=== PATIENT | female | born 1975 | race African-American/Black ===

== ENCOUNTER 2017-07-20 09:28 | Emergency (ER) | payer OTHER ==
[2017-07-20 09:50] VITALS: TEMP 98.7; BMI 51.6
--- NOTE | 2017-07-20 10:02 | PDOC ---
History of Present Illness - History of Present Illness Initial Comments: 07/20/17 10:05 The patient is a 41 year old female, with a significant past medical history of frequent headaches and depression (abilifservando and zoloft) who presents to the emergency department with gradual onset of lightheadedness, shortness of breath , dizziness, and clammy hands at 6AM. The patient states she was awake for about 1-2 hours before the onset of her symptoms at 6AM. She reportedly felt fine while eating breakfast and showering, however, developed a constant feeling of being off-balance and about to faint while getting dressed. She states she was able to get dressed, however, as she was walking to her car, parked in front of her home, she developed a momentary episode of shortness of breath and clammy hands. The patient states she became worried and called for an ambulance. She reports the shortness of breath has resolved, however, continues to have the about to faint sensation. She also states she feels generalized diffuse weakness with questionable increased weakness to her right hand. She states she started taking a Centrum multivitamin about a week ago. She denies recent illnesses or sick contacts. She denies recent travels. She denies chest pain, headache. She denies fever, chills, nausea, vomit, diarrhea and constipation. She denies dysuria, frequency, urgency and hematuria. Allergies: NKDA Past surgical history: x 3 (one requiring 2 blood transfusions), tubal ligation Social history: Denies tobacco use. Denies EtOH consumption. PCP: Recently changed from Dr. Curtis to "Dr. North", however, denies being evaluated by either physicians this year. <Sherita Crooks - Last Filed: 07/20/17 12:02> <Lew Naik - Last Filed: 07/20/17 12:20> - General Chief Complaint: Lightheaded Stated Complaint: Lightheaded Time Seen by Provider: 07/20/17 09:35 NIH Stroke Scale - Last Known Well Date/Time & Onset Date Last Known Well: 07/20/17 Time Last Known Well: 06:00 - Initial Evaluation Level of consciousness: Alert Ask patient the month and their age: Answers both correctly Ask patient to open & close eyes; make fist and let go: Obeys both correctly Best gaze (horizontal eye movement): Normal Visual field testing: No visual field loss Facial paresis (Show teeth/raise eyebrows/close eyes tight): Normal symmetrical movement Motor Function: Left Arm: Normal Motor Function: Right Arm: Normal (extends arm 90 (or 45) degrees for 10 seconds without drift Motor Function: Left Leg: Normal (extends leg 30 degrees for 5 seconds without drift) Motor Function: Right Leg: Normal (extends leg 30 degrees for 5 seconds without drift) Limb Ataxia: No ataxia Sensory(Use pinprick test arms,legs,trunk,face/side to side): Normal Best language (Describe picture, name items, read sentences): No Aphasia Dysarthria (read several words): Normal articulation Extinction and Inattention: No abnormality - Total Score NIH Stroke Scale Score: 0 <Lew Naik - Last Filed: 07/20/17 12:20> tPA Exclusion checklist 3-4.5h - Thrombolytic Therapy Candidate Is patient eligible for thrombolytic therapy: No - Relative Exclusion Criteria 3-4.5 hr Stroke severity too mild: Yes - Ineligibility reason(s) Reasons No tPA given: See reason(s) noted above <Lew Naik - Last Filed: 07/20/17 12:20> Past History <Sherita Crooks - Last Filed: 07/20/17 12:02> - Past Medical History Anemia: Yes (with transfussion) COPD: No Psychiatric Problems: Yes (depression anxiety) - Suicide/Smoking/Psychosocial Hx Smoking History: Never smoked Have you smoked in the past 12 months: No Information on smoking cessation initiated: No Hx Alcohol Use: No Drug/Substance Use Hx: No Substance Use Type: None <Lew Naik - Last Filed: 07/20/17 12:20> - Past Medical History Allergies/Adverse Reactions: Allergies Allergy/AdvReac Type Severity Reaction Status Date / Time No Known Allergies Allergy Verified 07/20/17 09:34 Home Medications: Ambulatory Orders Aripiprazole [Abilify] 5 mg PO HS 07/20/17 Sertraline HCl [Zoloft -] 50 mg PO HS 07/20/17 Review of Systems - Review of Systems Able to Perform ROS?: Yes <Sherita Crooks - Last Filed: 07/20/17 12:02> - Review of Systems Constitutional: Yes: Weakness. No: Chills, Fever HEENTM: No: Recent change in vision Respiratory: Yes: Shortness of Breath. No: Cough Cardiac (ROS): Yes: Lightheadedness. No: Chest Pain, Syncope ABD/GI: No: Nausea, Vomiting : No: Dysuria Neurological: No: Headache, Seizure, Ataxia All Other Systems: Reviewed and Negative <Lew Naik - Last Filed: 07/20/17 12:20> *Physical Exam - Vital Signs Last Vital Signs Temp Pulse Resp BP Pulse Ox 98.7 F 63 20 125/76 100 07/20/17 09:35 07/20/17 09:35 07/20/17 09:35 07/20/17 09:35 07/20/17 09:35 - Physical Exam Comments: 07/20/17 10:05 GENERAL: The patient is awake, alert, and fully oriented, in no acute distress. HEAD: Normal with no signs of trauma. EYES: Pupils equal, round and reactive to light, extraocular movements intact, sclera anicteric, conjunctiva clear with no pallor. ENT: Ears normal, nares patent, oropharynx clear without exudates. Moist mucous membranes. NECK: Normal range of motion, supple without lymphadenopathy, JVD, or masses. LUNGS: Breath sounds equal, clear to auscultation bilaterally. No wheeze/ crackles. HEART: Regular rate and rhythm, normal S1 and S2 without murmur or rub. ABDOMEN: Soft/nontender/nondistended. BS wnl. No guarding or rebound. No palpable masses. No hepatosplenomegaly. EXTREMITIES: Normal range of motion, no edema. No clubbing or cyanosis. No cords, erythema, or tenderness. PSYCH: Normal mood, normal affect. SKIN: Warm, Dry, normal turgor, no rashes or lesions noted. NEURO: Mental status: The patient is alert and oriented x3. Cranial nerves: Cranial nerves II through XII are intact Motor: (+) ? subtle right arm drift but able to correct. The upper extremities are 5 over 5 in all muscle groups. The lower extremities are 5 over 5 in all muscle groups. Sensation: Sensation is intact to light touch throughout. Cerebellar: [id number]-[id number] is normal in both upper extremities. Heel-knee- garcias is normal in both lower extremities. Reflexes: 2+ and symmetric in the upper and lower extremities. Gait: Normal. Heel and toe walking are normal. Tandem gait is normal. <Jey Crooksanda - Last Filed: 07/20/17 12:02> - Vital Signs Last Vital Signs Temp Pulse Resp BP Pulse Ox 98.7 F 63 20 125/76 100 07/20/17 09:35 07/20/17 09:35 07/20/17 09:35 07/20/17 09:35 07/20/17 09:35 <Lew Naik - Last Filed: 07/20/17 12:20> Heart Score/ECG Review #1 ECG reviewed & interpreted by me at: 09:44 General ECG Interpretation: Sinus Rhythm, Normal Rate (63), Normal Intervals ( qtc 419), No acute ischemic changes <Lew Naik - Last Filed: 07/20/17 12:20> ED Treatment Course - LABORATORY CBC & Chemistry Diagram: 07/20/17 10:27 07/20/17 10:27 - RADIOLOGY Radiograph Interpretation: EXAM#: TYPE/EXAM: RESULT: [id number] RAD/CHEST X-RAY PORTABLE* Stroke. Single portable chest x-ray. Comparison study. June 19, 2004. Unremarkable contour of the cardiomediastinal silhouette. The lungs are well aerated. No evidence of pneumonia, atelectasis, CHF, pleural effusion or pneumothorax. No evidence of bulky hilar adenopathy. Intact visualized osseous structures. Impression. No evidence of active pulmonary disease. Reported By: Veto Cornejo MD 07/20/17 1046 EXAM#: TYPE/EXAM: RESULT: [id number] CT/HEAD CT (STROKE) Rule out stroke CT scan of the brain without intravenous contrast. No prior is available for comparison. There is minimal volume loss mainly in the high convexity which is nonspecific. The ventricles and basal cisterns appear unremarkable. There is a dural based right parafalcine/high convexity calcified/ossified density measuring approximately 1.4 x 1.6 x 0.9 cm, likely a benign dural calcification. It may represent a calcified/ ossified meningioma. Otherwise, no mass lesion, acute infarct or intracranial hemorrhage are identified. There is no shift of the midline structures. The calvarium is intact. Visualized paranasal sinuses and mastoid air cells are well aerated. IMPRESSION: See discussion above. No acute intracranial pathology is identified. Correlate clinically to determine further evaluation and follow-up Reported By: Radha Saenz MD 07/20/17 1043 <Sherita Crooks - Last Filed: 07/20/17 12:02> - LABORATORY CBC & Chemistry Diagram: 07/20/17 10:27 07/20/17 10:27 - RADIOLOGY Radiology Studies Ordered: Category Date Time Status HEAD CT (STROKE) [CT] Stat CT Scan 07/20/17 09:54 Ordered CHEST X-RAY PORTABLE* [RAD] Stat Radiology 07/20/17 09:55 Ordered <Lew Naik - Last Filed: 07/20/17 12:20> Medical Decision Making - Medical Decision Making 07/20/17 10:16 A portion of this note was documented by scribe services under my direction. I have reviewed the details of the note, within reason, and agree with the documentation with the following case summary and management plan written by me. 41-year-old female with no significant past medical history presents with nonspecific generalized weakness/lightheadedness since around 6 AM. Patient awoke at 5 AM, per her usual routine and in her usual state of normal health, ate breakfast and took a shower without difficulty, walked to her car and then felt some shortness of breath and generalized lightheadedness. The shortness of breath resolved after a few minutes, but the lightheadedness and generalized weakness persists so she presents for evaluation. No headache, no vision change or speech change, no focal weakness, no chest pain or pressure, no recent infectious symptoms or dehydration. Patient does have a history of frequent headaches, denies any headache associated with these symptoms. Never had symptoms like this in the past. Vital signs normal Well-appearing, looks generally fatigued, alert and speaking clearly neuro exam nonfocal, ? subtle R arm difference but still 5/5 41y/o F no PMH p/w generalized light-headedness since 6am, nonfocal exam, well appearing. VSS. atypical for ASSISTANCE COORDINATOR process, ? migraine equivalent v. metabolic/ infectious process. initiated stroke protocol orders labs, ua ekg, cxr ivf reassess 07/20/17 11:52 Hgb 10.7 unchanged from prior, remaining labs wnl, no infection on UA or CXR, CT head with ? meningioma but no other acute process. Fluids just started, will give some PO intake then reassess. 07/20/17 12:16 improving, ambulating to bathroom on her own. still no focal complaints. agrees with d/c plan, f/u with her PMD Dr. North and understands return criteria for ED. Not consistent with TIA/CVA, ? early infectious process, no pna or UTI. <Lew Naik - Last Filed: 07/20/17 12:20> *DC/Admit/Observation/Transfer - Attestations Scribe Attestion: 07/20/17 10:06 Documentation prepared by Sherita Crooks, acting as certified medical dosimetrist for Lew Naik MD <Sherita Crooks - Last Filed: 07/20/17 12:02> <Lew Naik - Last Filed: 07/20/17 12:20> Diagnosis at time of Disposition: Lightheaded - Discharge Dispostion Disposition: HOME Condition at time of disposition: Improved - Referrals Referrals: Nam Sauceda MD [Staff Physician] - - Patient Instructions Printed Discharge Instructions: DI for Dizziness-Nonvertigo Additional Instructions: Activity as tolerated. Stay hydrated. Blood tests, a urine test, an EKG, chest x-ray, and a CAT scan of the head showed no acute abnormalities. Your symptoms could be due to an early viral infection, perhaps some dehydration. Continue your medications as previously prescribed by your physician. You should follow up with Dr. North as soon as possible regarding today's emergency department visit. Also consider calling Dr. Sauceda for a primary care appointment. Return to the emergency department for any new or concerning symptoms, particularly persistent weakness, one-sided weakness or numbness, headache, fever/chills, dehydration, blood loss.
[2017-07-20] MEDS ORDERED: SODIUM CHLORIDE 1,000 ML IV ONE (10:34)
[2017-07-20 10:35] LABS: URINE APPEARANCE CLEAR; URINE BILIRUBIN NEGATIVE (NEGATIVE); URINE BLOOD NEGATIVE (NEGATIVE); URINE COLOR LTYELLOW; URINE GLUCOSE (UA) NEGATIVE (NEGATIVE); URINE KETONE NEGATIVE (NEGATIVE); URINE LEUK ESTERASE NEGATIVE (NEGATIVE); URINE NITRITE NEGATIVE (NEGATIVE); URINE PROTEIN NEGATIVE (NEGATIVE); URINE UROBILINOGEN NEGATIVE mg/dL (0.2-1.0)
[2017-07-20 10:40] LABS: BASOPHIL 0.3 % (0-2.0); EOSINOPHIL 0.7 % (0-4.5); MCH 22.5 pg (25.7-33.7); MCHC 30.7 g/dl (32.0-36.0); MEAN CELL VOLUME 73.4 fl (80-96); MEAN PLT VOLUME 9.5 fl (7.5-11.1); NEUTROPHILS 68.9 % (42.8-82.8); PLATELET COUNT 198 K/MM3 (134-434); RDW 14.6 % (11.6-15.6); WHITE BLOOD COUNT 9.8 K/mm3 (4.0-10.0)
[2017-07-20 10:56] LABS: INR 1.19 (0.82-1.09); PROTHROMBIN TIME (PATIENT) 13.5 SEC (9.98-11.88)
[2017-07-20 11:05] LABS: CALCIUM 8.2 mg/dL (8.5-10.1)
[2017-07-20 11:10] LABS: ALBUMIN 3.3 g/dl (3.4-5.0); ALK PHOS 84 U/L (45-117); ANION GAP 4 (8-16); BILIRUBIN,TOTAL 0.4 mg/dL (0.2-1.0); CHOLESTEROL 147 mg/dL (50-200); CO2 27 mmol/L (21-32); CPK 143 IU/L (26-192); CREATININE 0.7 mg/dL (0.55-1.02); GLUCOSE,RANDOM 88 mg/dL (74-106); SGOT/AST 14 U/L (15-37); SGPT/ALT 20 U/L (12-78); TOT PROT 6.9 g/dl (6.4-8.2); TROPONIN I < 0.02 ng/ml (0.00-0.05)
--- NOTE | 2017-07-20 11:33 | EKG ---
Test Reason : Blood Pressure : / mmHG Vent. Rate : 063 BPM Atrial Rate : 063 BPM P-R Int : 168 ms QRS Dur : 072 ms QT Int : 410 ms P-R-T Axes : 059 022 023 degrees QTc Int : 419 ms POOR DATA QUALITY, INTERPRETATION MAY BE ADVERSELY AFFECTED NORMAL SINUS RHYTHM NORMAL ECG WHEN COMPARED WITH ECG OF 25-JUN-2004 11:09, NO SIGNIFICANT CHANGE WAS FOUND Confirmed by PURVI GODINEZ, LILIAN ([id number]) on 07/20/2017 11:33:05 AM Referred By: Confirmed By:LILIAN LOJA MD
[2017-07-20 13:40] VITALS: BP 121/74; PULSE 62
[2017-07-20 18:03] LABS: URINE LEUK ESTERASE Negative (NEGATIVE)
== END 2017-07-20 13:40 | disposition home or self-care (01) ==
LOC: JER 09:28
PROC: 3E0337Z Introduction of Electrolytic and Water Balance Substance into Peripheral Vein, Percutaneous Approach (ICD-10-PCS; principal; 2017-07-20)
DX: R51 Headache (principal); F41.8 Other specified anxiety disorders; D64.9 Anemia, unspecified
CPT/HCPCS: 36415; 70450-TC; 71010-TC; 80053; 81003; 82465; 82550; 83718; 83721; 84478; 84484; 84703; 85025; 85610; 86850; 86900; 86901; 93005; 93010; 99283-25

== ENCOUNTER 2017-11-02 21:28 | Emergency (ER) | payer OTHER ==
[2017-11-02 21:48] VITALS: BP 161/93; PULSE 61; TEMP 98.2; BMI 50.0
[2017-11-02] MEDS ORDERED: ACETAMINOPHEN 325 MG TABLET (FP) PO ONE (22:03)
[2017-11-02] MEDS ORDERED: ACETAMINOPHEN 325 MG TABLET (FP) ONE (22:06)
--- NOTE | 2017-11-02 22:09 | PDOC ---
History of Present Illness - General Chief Complaint: Toothache Stated Complaint: TOOTHACHE Time Seen by Provider: 11/02/17 21:49 History Source: Patient Exam Limitations: No Limitations - History of Present Illness Initial Comments: 11/02/17 22:05 41 y/o female Presents the ED with complaints of pain to all 4 quadrants after having her wisdom teeth extracted last week by her oral surgeon. Patient states was given Percocet which did alleviate pain but states had ran out and now pain is unrelieved with just Motrin and Tylenol. Patient denies fever, chills, facial swelling, drainage, or foul smell to the area. Timing/Duration: 1 week Severity: moderate Associated Symptoms: reports: denies symptoms Past History - Travel Traveled outside of the country in the last 30 days: No - Past Medical History Allergies/Adverse Reactions: Allergies Allergy/AdvReac Type Severity Reaction Status Date / Time No Known Allergies Allergy Verified 11/02/17 21:47 Home Medications: Ambulatory Orders Aripiprazole [Abilify] 5 mg PO HS 07/20/17 Sertraline HCl [Zoloft -] 50 mg PO HS 07/20/17 Oxycodone HCl/Acetaminophen [Percocet 5-325 mg Tablet] 1 - 2 tab PO Q6H PRN #12 tab MDD 4 11/02/17 Anemia: Yes (with transfussion) COPD: No Psychiatric Problems: Yes (depression anxiety) - Suicide/Smoking/Psychosocial Hx Smoking History: Never smoked Have you smoked in the past 12 months: No Information on smoking cessation initiated: No Hx Alcohol Use: No Drug/Substance Use Hx: No Substance Use Type: None Patient Lives Alone: No Review of Systems - Review of Systems Able to Perform ROS?: No Constitutional: No: Symptoms Reported HEENTM: Yes: Symptoms Reported, Dental Problems Respiratory: No: Symptoms reported Musculoskeletal: No: Symptoms Reported Integumentary: No: Symptoms Reported Neurological: No: Symptoms reported *Physical Exam - Vital Signs Last Vital Signs Temp Pulse Resp BP Pulse Ox 98.2 F 61 16 161/93 100 11/02/17 21:47 11/02/17 21:47 11/02/17 21:47 11/02/17 21:47 11/02/17 21:47 - Physical Exam General Appearance: Yes: Nourished, Appropriately Dressed. No: Apparent Distress HEENT: positive: Other (Noted wisdom tooth extraction sites with no signs of infection including swelling, order, or redness. No pre-or postauricular nodes palpable. No submental node palpable.) Neck: negative: Lymphadenopathy (R), Lymphadenopathy (L) Integumentary: positive: Normal Color, Warm, Moist Neurologic: positive: Motor Strength 5/5 (ambulatory) Medical Decision Making - Medical Decision Making 11/02/17 22:12 Patient here for dental pain and requesting more pain medicine since she states completed her 5 days of Percocet still having pain to the area. Patient has no completed to fever or any signs of abscess on exam. Patient with a Percocet and 2 Tylenol here. Patient to be discharged home with the same. *DC/Admit/Observation/Transfer Diagnosis at time of Disposition: Pain, dental - Discharge Dispostion Disposition: HOME Condition at time of disposition: Good - Prescriptions Prescriptions: Oxycodone HCl/Acetaminophen [Percocet 5-325 mg Tablet] 1 - 2 tab PO Q6H PRN #12 tab MDD 4 PRN Reason: Pain - Referrals - Patient Instructions Printed Discharge Instructions: DI for Dental Pain Additional Instructions: Eat soft not abrasive foods and please follow-up with your oral surgeon. Please take Percocet as needed for pain but do not operate any heavy machinery while taking this. - Post Discharge Activity
== END 2017-11-02 22:16 | disposition home or self-care (01) ==
LOC: JERFT 21:28
DX: K08.89 Other specified disorders of teeth and supporting structures (principal); F41.8 Other specified anxiety disorders; Z86.2 Personal history of diseases of the blood and blood-forming organs and certain disorders involving the immune mechanism
CPT/HCPCS: 99281-25

== ENCOUNTER 2018-01-16 18:02 | Emergency (ER) | payer OTHER ==
[2018-01-16] MEDS ORDERED: ONDANSETRON 4 MG/2 ML VIAL IVPUSH ONE (18:21)
--- NOTE | 2018-01-16 18:23 | PDOC ---
Rapid Medical Evaluation Medical Evaluation: Allergies Allergy/AdvReac Type Severity Reaction Status Date / Time No Known Allergies Allergy Verified 11/02/17 21:47 01/16/18 18:20 I have performed a brief in-person evaluation of this patient. The patient presents with a chief complaint of: dizziness / weakness nausea started new diet pill Pertinent physical exam findings: pain, pale I have ordered the following: CBC, CMP, UA, IV, - Zofran IV The patient will proceed to the ED for further evaluation. 01/16/18 18:22 01/16/18 18:23
[2018-01-16 18:25] VITALS: PULSE 67; TEMP 98.6; BMI 53.7
--- NOTE | 2018-01-16 19:18 | PDOC ---
History of Present Illness - History of Present Illness Initial Comments: 01/16/18 19:16 42 yo with no significant pmh who p/w nausea without vomiting x 3 days. Patient reports nausea and vomiting following PO intake of new weight loss medication. Also endorses mild dull, frontal ANGELO this AM. Normal BM, and PO intake. Denies F/C, CP, SOB, abdominal pain, diarrhea, constipation, BPR, urinary complaints, hematuria, weakness, lightheadedness, sensory changes. PMHx: as noted above. Surgical: H/o x 3. ROS: as noted above SHx: Denies Etoh, IVDA, or tobacco use. Allergies: NKDA <Scott Jimenez - Last Filed: 01/16/18 21:20> <Conrado Wade - Last Filed: 01/16/18 23:27> - General Chief Complaint: Nausea Stated Complaint: NAUSEA Past History - Past Medical History Anemia: Yes (with transfussion) COPD: No Psychiatric Problems: Yes (depression anxiety) - Suicide/Smoking/Psychosocial Hx Smoking History: Never smoked Have you smoked in the past 12 months: No Hx Alcohol Use: No Drug/Substance Use Hx: No Substance Use Type: None <Scott Jimenez - Last Filed: 01/16/18 21:20> <Conrado Wade - Last Filed: 01/16/18 23:27> - Past Medical History Allergies/Adverse Reactions: Allergies Allergy/AdvReac Type Severity Reaction Status Date / Time No Known Allergies Allergy Verified 01/16/18 18:23 Home Medications: Ambulatory Orders Aripiprazole [Abilify] 5 mg PO HS 07/20/17 Sertraline HCl [Zoloft -] 50 mg PO HS 07/20/17 Oxycodone HCl/Acetaminophen [Percocet 5-325 mg Tablet] 1 - 2 tab PO Q6H PRN #12 tab MDD 4 11/02/17 Review of Systems - Review of Systems Comments:: 01/16/18 19:16 GENERAL/CONSTITUTIONAL: No fever or chills. No weakness. HEAD, EYES, EARS, NOSE AND THROAT: No change in vision. No ear pain or discharge. No sore throat. CARDIOVASCULAR: No chest pain or shortness of breath RESPIRATORY: No cough, wheezing, or hemoptysis. GASTROINTESTINAL: + nausea. No vomiting, diarrhea or constipation. GENITOURINARY: No dysuria, frequency, or change in urination. MUSCULOSKELETAL: No joint or muscle swelling or pain. No neck or back pain. SKIN: No rash NEUROLOGIC: No headache, vertigo, loss of consciousness, or change in strength/ sensation. ENDOCRINE: No increased thirst. No abnormal weight change HEMATOLOGIC/LYMPHATIC: No anemia, easy bleeding, or history of blood clots. ALLERGIC/IMMUNOLOGIC: No hives or skin allergy. <Scott Jimenez - Last Filed: 01/16/18 21:20> *Physical Exam - Vital Signs Last Vital Signs Temp Pulse Resp BP Pulse Ox 98.6 F 67 18 170/98 98 01/16/18 18:23 01/16/18 18:23 01/16/18 18:23 01/16/18 18:23 01/16/18 18:23 - Physical Exam Comments: 01/16/18 19:17 GENERAL: Awake, alert, and fully oriented, in no acute distress HEAD: No signs of trauma, normocephalic, atraumatic EYES: PERRLA, EOMI, sclera anicteric, conjunctiva clear ENT: Auricles normal inspection, hearing grossly normal, nares patent, oropharynx clear without exudates. Moist mucosa NECK: Normal ROM, supple, no lymphadenopathy, JVD, or masses LUNGS: No distress, speaks full sentences, clear to auscultation bilaterally HEART: Regular rate and rhythm, normal S1 and S2, no murmurs, rubs or gallops, peripheral pulses normal and equal bilaterally. ABDOMEN: Soft, nontender, normoactive bowel sounds. No guarding, no rebound. No masses EXTREMITIES : Normal inspection, Normal range of motion, no edema. No clubbing or cyanosis. SKIN: Warm, Dry, normal turgor, no rashes or lesions noted <Scott Jimenez - Last Filed: 01/16/18 21:20> - Vital Signs Last Vital Signs Temp Pulse Resp BP Pulse Ox 98.6 F 67 18 170/98 98 01/16/18 18:23 01/16/18 18:23 01/16/18 18:23 01/16/18 18:23 01/16/18 18:23 <Conrado Wade - Last Filed: 01/16/18 23:27> ED Treatment Course - LABORATORY CBC & Chemistry Diagram: 01/16/18 19:27 01/16/18 19:27 <Scott Jimenez - Last Filed: 01/16/18 21:20> - LABORATORY CBC & Chemistry Diagram: 01/16/18 19:27 01/16/18 19:27 - ADDITIONAL ORDERS Additional order review: Laboratory Results 01/16/18 19:27 Sodium 138 Potassium 4.9 Chloride 105 Carbon Dioxide 29 Anion Gap 4 L BUN 13 Creatinine 0.9 Creat Clearance w eGFR > 60 Random Glucose 106 Calcium 8.5 Total Bilirubin 0.4 AST 28 ALT 22 Alkaline Phosphatase 100 Total Protein 7.7 Albumin 3.8 01/16/18 19:27 RBC 5.09 MCV 73.8 L MCHC 30.5 L RDW 14.6 MPV 9.6 Neutrophils % 72.0 Lymphocytes % 22.5 Monocytes % 4.6 Eosinophils % 0.2 Basophils % 0.7 - Medications Given in the ED: ED Medications Discontinued Medications Generic Name Dose Route Start Last Admin Trade Name Willieq PRN Reason Stop Dose Admin Acetaminophen 1,000 mg 01/16/18 21:20 01/16/18 21:30 Ofirmev Injection - IVPB 01/16/18 21:21 1,000 mg ONCE ONE Administration Ondansetron HCl 4 mg 01/16/18 18:21 01/16/18 19:32 Zofran Injection IVPUSH 01/16/18 18:22 4 mg ONCE ONE Administration <Conrado Wade - Last Filed: 01/16/18 23:27> Medical Decision Making - Medical Decision Making 01/16/18 19:40 42 yo with no significant pmh who p/w nausea without vomiting x 3 days. VSS, A& Ox3, NAD. Denies abdominal pain. No evidence of abdominal pathology, SBO, colitis, AAA, borhaave, Claudia Omar. Will assess for electrolyte abnml, toxic or metabolic derangements,acid-base disturbances, or underlying infection. ED Course: 01/16/18 19:45 CBC, CMP, UA Zofran 01/16/18 21:20 WBC: 11.5 CMP: Unremarkable Tylenol 1000 mg IVPB Patient continually nasueas without vomitting. <Scott Jimenez - Last Filed: 01/16/18 21:20> *DC/Admit/Observation/Transfer - Attestations Physician Attestion: 01/16/18 19:17 I attest to the information provided in this note. <Scott Jimenez - Last Filed: 01/16/18 21:20> <Conrado Wade - Last Filed: 01/16/18 23:27> Diagnosis at time of Disposition: Nausea - Discharge Dispostion Disposition: HOME - Referrals Referrals: ON STAFF,NOT [Primary Care Provider] - - Patient Instructions Printed Discharge Instructions: DI for Nausea -- Adult Additional Instructions: Please return to the emergency department with any new or worsening symptoms or concerns. Please follow up with your primary care physician within 72 hours. Your blood pressure was elevated in the ER today. You must follow up with your primary doctor regarding this, as uncontrolled blood pressure can lead to heart or kidney disease, permanent disability, or even . - Post Discharge Activity
[2018-01-16] MEDS ORDERED: ONDANSETRON 4 MG/2 ML VIAL ONE (19:19)
[2018-01-16 19:41] LABS: BASO % 0.7 % (0-2.0); EOS % 0.2 % (0-4.5); HEMATOCRIT 37.6 % (32.4-45.2); HEMOGLOBIN 11.5 GM/dL (10.7-15.3); LYMPH % 22.5 % (8-40); MCH 22.6 pg (25.7-33.7); MCHC 30.5 g/dl (32.0-36.0); MEAN CELL VOLUME 73.8 fl (80-96); MEAN PLT VOLUME 9.6 fl (7.5-11.1); MONO % 4.6 % (3.8-10.2); PLATELET COUNT 242 K/MM3 (134-434); RBC 5.09 M/mm3 (3.60-5.2); RDW 14.6 % (11.6-15.6); WHITE BLOOD COUNT 11.5 K/mm3 (4.0-10.0)
[2018-01-16 20:14] LABS: ALBUMIN 3.8 g/dl (3.4-5.0); ALK PHOS 100 U/L (45-117); ANION GAP 4 (8-16); BILIRUBIN,TOTAL 0.4 mg/dL (0.2-1.0); BLOOD UREA NITROGEN 13 mg/dL (7-18); CALCIUM 8.5 mg/dL (8.5-10.1); CHLORIDE 105 mmol/L (98-107); CO2 29 mmol/L (21-32); CREATININE 0.9 mg/dL (0.55-1.02); GLUCOSE,RANDOM 106 mg/dL (74-106); SGPT/ALT 22 U/L (12-78); SODIUM 138 mmol/L (136-145); TOT PROT 7.7 g/dl (6.4-8.2)
[2018-01-16 20:49] LABS: POTASSIUM 4.9 mmol/L (3.5-5.1); SGOT/AST 28 U/L (15-37)
[2018-01-16] MEDS ORDERED: ACETAMINOPHEN 1000 MG/100 ML VIAL (NON FORMULARY) IVPB ONE (21:20)
[2018-01-16] MEDS ORDERED: ACETAMINOPHEN INJECTION 100 ML IVPB ONE (21:26)
--- NOTE | 2018-01-16 23:26 | PDOC ---
Attending Attestation - Resident Resident Name: Scott Jimenez - ED Attending Attestation I have performed the following: I have examined & evaluated the patient, The case was reviewed & discussed with the resident, I agree w/resident's findings & plan, Exceptions are as noted - HPI HPI: 01/16/18 23:23 "The patient is a 42 year old female, with a significant past medical history of obesity, who presents to the emergency department with 3 days of nausea without emesis. The patient reports taking a weight loss pill called Contrave for the past 3 days. She states her pharmacist told her she could increase her dosage, so she increased it yesterday despite not feeling well. She reports an associated mild, dull, frontal headache. Denies thunderclap. Denies neck pain. Denies F/C. Denies abdominal pain. She reports normal PO intake. Allergies: NKA Past surgical history: 3 C-Sections. Social history: Nonsmoker. Denies EtOH use and recreational drug use. " - Physicial Exam PE: 01/16/18 23:25 "GENERAL: Awake, alert, and fully oriented, in no acute distress. HEAD: No signs of trauma EYES: PERRLA, EOMI, sclera anicteric, conjunctiva clear ENT: Auricles normal inspection, hearing grossly normal, nares patent, oropharynx clear without exudates. Moist mucosa NECK: Nontender, no stepoffs, Normal ROM, supple, no lymphadenopathy, JVD, or masses LUNGS: Breath sounds equal, clear to auscultation bilaterally. No wheezes, and no crackles HEART: Regular rate and rhythm, normal S1 and S2, no murmurs, rubs or gallops ABDOMEN: obese, nontender, normoactive bowel sounds. No guarding, no rebound. No masses EXTREMITIES: Normal range of motion, no edema. No clubbing or cyanosis. No cords, erythema, or tenderness NEUROLOGICAL: Cranial nerves II through XII intact. 5/5 strength and sensation in all extremities, Normal speech, normal gait, normal cerebellar function SKIN: Warm, Dry, normal turgor, no rashes or lesions noted. " - Medical Decision Making 01/16/18 23:25 42 F with nausea, no other symptoms. Likely side effect of weight loss medication. Benign abdominal exam. Normal vitals. - Labs - PO challenge 01/16/18 23:26 Labs wnl Pt tolerated sandwich in ED. Pt is well appearing, with normal vitals. Clinically stable for DC at this time. I discussed the physical exam findings, ancillary test results and final diagnoses with the patient. I answered all of the patient's questions. The patient was satisfied with the care received and felt comfortable with the discharge plan and treatment plan. The patient agrees to follow up with the primary care physician within 24-72 hours. <Conrado Wade - Last Filed: 01/16/18 23:26> Attestations - Attestations 01/17/18 00:16 Documentation prepared by Lefty Muñoz, acting as medical staffing coordinator for Conrado aWde MD. <Lefty Muñoz - Last Filed: 01/17/18 00:17>
[2018-01-17] VITALS: BP 129/84
== END 2018-01-17 | disposition home or self-care (01) ==
LOC: JER 18:02
PROC: 3E033NZ Introduction of Analgesics, Hypnotics, Sedatives into Peripheral Vein, Percutaneous Approach (ICD-10-PCS; principal; 2018-01-16)
PROC: 3E033GC Introduction of Other Therapeutic Substance into Peripheral Vein, Percutaneous Approach (ICD-10-PCS; 2018-01-16)
DX: R11.0 Nausea (principal); T50.995A Adverse effect of other drugs, medicaments and biological substances, initial encounter; Y92.89 Other specified places as the place of occurrence of the external cause; F41.9 Anxiety disorder, unspecified; E66.9 Obesity, unspecified; Z68.43 Body mass index [BMI] 50.0-59.9, adult
CPT/HCPCS: 36415; 80053; 85025; 96374; 96375; 99282-25; J0131

== ENCOUNTER 2019-01-24 00:48 | Emergency (ER) | payer OTHER | END 2019-01-24 04:43 | disposition home or self-care (01) | LOC: JER 00:48 ==

== ENCOUNTER 2019-02-18 22:09 | Emergency (ER) | payer OTHER ==
[2019-02-18 22:33] VITALS: BP 103/69; PULSE 65; TEMP 98; BMI 55.5
[2019-02-19 00:16] LABS: BASO % 0.2 % (0-2.0); EOS % 0.6 % (0-4.5); HEMATOCRIT 32.9 % (32.4-45.2); HEMOGLOBIN 10.2 GM/dL (10.7-15.3); LYMPH % 25.5 % (8-40); MCH 22.9 pg (25.7-33.7); MCHC 31.1 g/dl (32.0-36.0); MEAN CELL VOLUME 73.6 fl (80-96); MEAN PLT VOLUME 8.9 fl (7.5-11.1); MONO % 4.9 % (3.8-10.2); NEUT % 68.8 % (42.8-82.8); PLATELET COUNT 236 K/MM3 (134-434); RBC 4.47 M/mm3 (3.60-5.2); RDW 14.7 % (11.6-15.6); WHITE BLOOD COUNT 11.7 K/mm3 (4.0-10.0)
--- NOTE | 2019-02-20 04:01 | PDOC ---
Documentation entered by Kathie Knight SCRIBE, acting as scribe for Le Barrios MD. Le Barrios MD: This documentation has been prepared by the Eugene ann Sammi, SCRIBE, under my direction and personally reviewed by me in its entirety. I confirm that the documentation accurately reflects all work, treatment, procedures, and medical decision making performed by me. History of Present Illness - General Chief Complaint: Vaginal Bleeding Stated Complaint: ABDOMINAL PAIN Time Seen by Provider: 02/18/19 22:58 History Source: Patient Exam Limitations: No Limitations - History of Present Illness Initial Comments: 02/18/19 23:35 The patient is a 43 year old female, with a significant PMH of tubal ligation, 3 c-sections, transfusions, who presents to the emergency department for evaluation of 2 days of vaginal bleeding and cramping. She also notes mild diffuse abdominal pain. The patient was evaluated here last month for dysfunctional uterine bleeding and did not attend her gynecology follow up. Past History - Past Medical History Allergies/Adverse Reactions: Allergies Allergy/AdvReac Type Severity Reaction Status Date / Time No Known Allergies Allergy Verified 02/18/19 22:33 Home Medications: Ambulatory Orders Aripiprazole [Abilify] 5 mg PO HS 07/20/17 Sertraline HCl [Zoloft -] 50 mg PO HS 07/20/17 Oxycodone HCl/Acetaminophen [Percocet 5-325 mg Tablet] 1 - 2 tab PO Q6H PRN #12 tab MDD 4 11/02/17 Anemia: Yes (with transfussion) COPD: No Psychiatric Problems: Yes (depression anxiety) - Reproductive History Is Patient Now?: No Therapeutic (s) & number: No - Immunization History Immunization Up to Date: Yes - Suicide/Smoking/Psychosocial Hx Smoking History: Never smoked Have you smoked in the past 12 months: No Information on smoking cessation initiated: No Hx Alcohol Use: No Drug/Substance Use Hx: No Substance Use Type: None Review of Systems - Review of Systems Comments:: 02/18/19 23:36 CONSTITUTIONAL: Absent: fever, no chills, no fatigue EYES: Absent: visual changes ENT: Absent: ear pain, no sore throat CARDIOVASCULAR: Absent: chest pain, no palpitations RESPIRATORY: Absent: cough, no SOB GI: (+)mild diffuse abdominal pain Absent: no nausea, no vomiting, no constipation, no diarrhea GENITOURINARY: Absent: dysuria, no frequency, no hematuria VAGINAL: (+)vaginal bleeding (+)cramping MUSKULOSKELETAL: Absent: back pain, no arthralgia, no myalgia SKIN: Absent: rash NEURO: Absent: headache *Physical Exam - Vital Signs Last Vital Signs Temp Pulse Resp BP Pulse Ox 98 F 65 16 103/69 98 02/18/19 22:09 02/18/19 22:09 02/18/19 22:09 02/18/19 22:09 02/18/19 22:09 - Physical Exam Comments: 02/18/19 23:35 GENERAL: (+)obese Well-appearing, well-nourished. No apparent distress. HEENT: Normocephalic, atraumatic. PERRL, EOM intact. CARDIOVASCULAR: Normal S1, S2. Regular rate and rhythm. PULMONARY: Clear to auscultation bilaterally. ABDOMEN: Soft, non-distended, non-tender. VAGINAL: (+)some bleeding in vaginal vault, no clots. Os is closed. EXTREMITIES: Normal ROM in all four extremities. No gross deformities. SKIN: Warm, dry. No rash NEUROLOGICAL: No focal neurological deficits. 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
== END 2019-02-19 01:05 | disposition home or self-care (01) ==
LOC: JER 22:09
DX: N93.8 Other specified abnormal uterine and vaginal bleeding (principal)
CPT/HCPCS: 36415; 85025; 99282-25

== ENCOUNTER 2020-05-21 04:08 | Emergency (ER) | payer OTHER ==
--- OUTSIDE RECORDS SUMMARY | 2020-05-21 06:46 | XMS ---
:1975 Author Organization [facility] Care Team Providers Name Role Phone Cordelia Adorno Unavailable [phone] Cordelia Adorno Unavailable [phone] [facility] Unavailable Unavailable Dion Marcus Unavailable [phone] LUCIA CEE Unavailable Unavailable ED STAFF PHYSICIAN, STAFF Unavailable Unavailable STERLING BRAVOA RMARITAYL-PADMAJA Unavailable Unava ilable ED STAFF PHYSICIAN, SAURAV Unavailable Unavailable Aldo Pro MD Unavailable Unavailable Aldo Pro MD Unavailable Unavailable Lucia Jones Unavailable [phone] Lucia Jones Unavailable [phone] Re-disclosure Warning The records that you are about to access may contain information from federally- assisted alcohol or drug abuse programs. If such information is present, then the following federally mandated warning applies: This information has been disclosed to you from records protected by federal confidentiality rules (42 CFR part 2). The federal rules prohibit you from making any further disclosure of this information unless further disclosure is expressly permitted by the written consent of the person to whom it pertains or as otherwise permitted by 42 CFR part 2. A general authorization for the release of medical or other information is NOT sufficient for this purpose. The Federal rules restrict any use of the information to criminally investigate or prosecute any alcohol or drug abuse patient.The records that you are about to access may contain highly sensitive health information, the redisclosure of which is protected by Article 27-F of the [facility] Public Health law. If you continue you may haveaccess to information: Regarding HIV / AIDS; Provided by facilities licensed or operated by the [facility] Office of Mental Health; or Provided by the [facility] Office for People With Developmental Disabilities. If such information is present, then the following [facility] mandated warning applies: This information has been disclosed to you from confidential records which are protected by state law. State law prohibits you from making any further disclosure of this information without the specific written consent of the person to whom it pertains, or as otherwise permitted by law. Any unauthorized further disclosure in violation of state law may result in a fine or fpc sentence or both. A general authorization for the release of medical or other information is NOT sufficient authorization for further disclosure. Encounters Encounter Providers Location Date Indications Data Source(s ) Outpatient Attender: [facility] 05/18/2020 [facility] ([facility] 03:43:49 PM Care [facility]) EDT Patient admitted. Outpatient Attender: [address] 03/14/2020 11:29:24 AM [facility] ([facility] EDT [facility]) Patient admitted. OutpatientOFFICE/OUTPATIENT Attender: [facility] 02/10/2020 [facility] VISIT, MAHCELLE Pro MD [facility] 04:22:00 PM EDT ([facility] - 02/10/2020 [facility] 04:22:00 PM EDT Medical Center) Attender: [facility] 02[facility]03/2020 [facility] 03:37:00 PM EDT ([facility] - 02/03/2020 [place] 03:37:00 PM EDT [facility] Center) Attender: Mental 01/20/2020 [facility] 03:09:00 PM EDT ([facility] - 01/20/2020 [place] 03:09:00 PM EDT Medical Center) Attender: Mental 01/13/2020 [facility] 02:32:00 PM EDT ([facility] - 01/13/2020 [place] 02:32:00 PM EDT Medical Center) OutpatientOFFICE/OUTPATIENT Attender: [facility] 01[facility]09/2020 [facility] 02:26:00 PM EDT ([facility] - 01/09/2020 [place] 02:26:00 PM EDT Medical Center) OutpatientOFFICE/OUTPATIENT Attender: Mental 12/12/2019 [facility] VISIT, MACHELLE Pro MD Health 02:04:00 PM EDT ([facility] - 12/12/2019 [place] 02:04:00 PM EDT Medical Center) Attender: Mental 12/03/2019 [facility] 10:36:00 AM EDT ([facility] - 12/03/2019 [place] 10:36:00 AM EDT Medical Center) OutpatientOFFICE/OUTPATIENT Attender: Mental 11/14/2019 [facility] VISIT, EST Aldo Pro MD Health 02:25:00 PM EDT ([facility] - 11/14/2019 [facility] 02:25:00 PM EDT Medical Center) Attender: Mental 11/11/2019 [facility] 02:32:00 PM EDT ([facility] - 11/11/2019 [facility] 02:32:00 PM EDT Medical Center) Attender: Mental 11/07/2019 [facility] Aldo Pro MD Health 05:55:00 PM EDT ([facility] - 11/07/2019 [place] 05:55:00 PM EDT Medical Center) Outpatient Attender: 10/01/2019 [facility] ([facility] 11:55:26 AM [facility]) Patient admitted. OutpatientOFFICE/OUTPATIENT Attender: Lcu[facility] Mental 09/13/2019 [facility] 01:[facility] ([facility] 09/13/2019 Medical 01:28:00 PM Center) EST Outpatient Attender: LUCIA Llamas 08/24/2019 [facility] 01:44:00 PM [place] JOYdmitter: RUST Medical [facility] Attender: Lucia Mental 08/24/2019 [facility] Health 01:44:00 PM ([facility] 08/24/2019 Medical 01:44:00 PM Center) EST Attender: LUCIA 08/24/2019 [facility] 12:00:00 AM [place] [facility] Attender: Mental 07/18/2019 [facility] 02:04:00 PM ([facility] 07/18/2019 Medical 02:04:00 PM [place]) EST Emergency Attender: SAURAV Llamas 06/25/2019 [facility] ED STAFF 06:16:00 PM [facility] PHYSICIANAttende EST - Medical r: STAFF ED 06/25/2019 Center STAFF 11:15:00 PM PHYSICIANAdmitte EST r: SAURAV ED STAFF PHYSICIAN Patient discharged. Attender: [facility] 05/06/2019 [facility] N ([facility] 02:17:00 PM EDT - [facility] 05/06/2019 [place]) 02:17:00 PM EDT OutpatientOFFICE/OU Attender: Mental Health 05/06/2019 NE XTGEN ([facility] VISIT, [facility] 12:37:00 PM EDT [facility] 05/06/2019 [place]) 12:37:00 PM EDT Outpatient Admitter: 08/30/2018 [facility] 10:05:00 AM [facility] 08/30/2018 [facility] 12:00:00 AM [facility] Medical enter Medications Medication Brand Start Product Dose Route Administrative Pharmacy [facility] Indications Reaction Description Data Name Date Form Instructions Instructions Source(s) Sertraline Zoloft ORAL active Sertrali ne [facility] 50 MG Oral 50 mg 2020 {tbl} 50 MG Oral ( [facility] tablet 12:00: Tablet [place] [Zoloft] 00 AM [Zoloft] Medica l Zoloft 50 EDT [place]) mg tablet aripiprazol Abilif ORAL active aripipr azole NEXTGEN e 5 MG Oral y 5 mg 2020 {tbl} 5 MG Oral ([facility] Tablet tablet 12:00: Tablet [place] [Abilify] 00 AM [Abilify] Medi rui Abilify 5 EDT [place]) mg tablet Sertraline Zoloft ORAL complet Sertral ine NEXTGEN 50 MG Oral 50 mg 2020 {tbl} ed 50 MG Oral ( [facility] tablet 12:00: Tablet [place] [Zoloft] 00 AM [Zoloft] Medica l Zoloft 50 EDT [place]) mg tablet aripiprazol Abilif 05/28/ 1.00 ORAL complet aripip razole NEXTGEN e 5 MG Oral y 5 mg 2020 {tbl} ed 5 MG Oral ([facility] tablet 12:00: Tablet [place] [Abilify] 00 AM [Abilify] [place] [address] EDT [place]) mg tablet Sertraline Zoloft ORAL complet Sertral ine NEXTGEN 50 MG Oral 50 mg 2020 {tbl} ed 50 MG Oral ( [facility] tablet 12:00: Tablet [place] [Zoloft] 00 AM [Zoloft] Medica l Zoloft 50 EDT [place]) mg tablet aripiprazol ORAL complet aripip razole NEXTGEN e 5 MG Oral y 5 mg 2020 {tbl} ed 5 MG Oral ([facility] tablet 12:00: Tablet [place] [Abilify] 00 AM [Abili] [place] [address] [facility]) mg tablet Sertraline Zoloft ORAL complet Sertral ine NEXTGEN 50 MG Oral 50 mg 2020 {tbl} ed 50 MG Oral ( [facility] tablet 12:00: Tablet [place] [Zoloft] 00 AM [Zoloft] Medica l Zoloft 50 EDT [place]) mg tablet aripiprazol ORAL complet aripip razole NEXTGEN e 5 MG Oral y 5 mg 2020 {tbl} ed 5 MG Oral ([facility] Tablet tablet 12:00: Tablet [place] [Abilify] 00 AM [Abili] [place] [address] [facility]) mg tablet aripiprazol ORAL complet aripip razole NEXTGEN e 5 MG Oral y 5 mg 2020 {tbl} ed 5 MG Oral ([facility] Table[facility] tablet 12:00: Tablet [place] [Abilify] 00 AM [Abilify] [address]) mg tablet Sertraline Zoloft ORAL complet Sertral ine NEXTGEN 50 MG Oral 50 mg 2020 {tbl} ed 50 MG Oral ( [facility] tablet 12:00: Tablet [place] [Zoloft] 00 AM [Zoloft] Medica l Zoloft 50 EST Center) mg tablet Sertraline Zoloft ORAL complet Sertral ine NEXTGEN 50 MG Oral 50 mg 2019 {tbl} ed 50 MG Oral ( [facility] tablet 12:00: Tablet [place] [Zoloft] 00 AM [Zoloft] Medica l Zoloft 50 EST Center) mg tablet aripiprazol lif ORAL complet aripip razole NEXTGEN e 5 MG Oral y 5 mg 2018 {tbl} ed 5 MG Oral ([facility] tablet 12:00: Tablet [place] [Abilify] 00 AM [Abilify] [facility]) mg tablet Hydroxyzine hydrox ORAL complet take 1 NEXT[facility] Hydrochlori yzine 2018 {tbl} ed tablet by ( [facility] de 25 MG HCl 25 12:00: oral route J osephs Oral Tablet mg 00 AM every day as Medical hydroxyzine tablet EST needed Cent er) HCl 25 mg tablet Sertraline Zoloft ORAL complet Sertral ine NEXTGEN 50 MG Oral 50 mg 2019 {tbl} ed 50 MG Oral ( [facility] tablet 12:00: Tablet [place] [Zoloft] 00 AM [Zoloft] Medica Zoloft 50 EDT [place]) mg tablet aripiprazol ORAL complet aripip razole NEXTGEN e 5 MG Oral y 5 mg 2018 {tbl} ed 5 MG Oral ([facility] Tablet tablet 12:00: Tablet [place] [Abilify] 00 AM [Abilify] [facility] 5 EDT Center) mg tablet aripiprazol lif ORAL complet aripip razole NEXTGEN e 5 MG Oral y 5 mg 2018 {tbl} ed 5 MG Oral ([facility] tablet 12:00: Tablet [place] [Abilify] 00 AM [Abilify] [facility] 5 EDT Center) mg tablet Sertraline Zoloft ORAL complet Sertral ine NEXTGEN 50 MG Oral 50 mg 2019 {tbl} ed 50 MG Oral ( [facility] tablet 12:00: Tablet [place] [Zoloft] 00 AM [Zoloft] Medica l Zoloft 50 EDT [place]) mg tablet Insurance Providers Payer name Policy type / Policy ID Covered Covered democrat's Policy Plan Coverage type democrat ID relationship to [place] Information [place] MEDICAID [id number] SP [id number] [place] [id number] SP [id number] COMPLETE [facility] [id number] MEDICARE OP M [id number] 01 [id number] Medicare Part Medicare [id number] 1 [id number] B Outpatient [facility] [id number] 1 [id number] Healthcare Medicaid Medicaid [id number] [facility] [id number] 1 [id number] Healthcare Medicare Dental [id number] S [id number] [employer] CHP Dental [id number] S [id number] [employer] MKD [facility] [id number] S [id number] FFS Medicaid Medicaid [id number] S [id number] Wrap Claims Medicaid [id number] S [id number] Regular Clinic Visit [facility] Medicaid [id number] S [id number] Managed Care Problems, Conditions, and Diagnoses Code Display Name Description Problem Type Effective Dates Data Source(s) F31.5 Bipolar disorder, BIPOLAR DISORD, Diagnosis 08/24/2019 [facility] current episode CRNT EPSD DEPRESS, 01:44:00 PM [facility] depressed, severe, SEVERE, W PSYCH with psychotic FEATURES features F41.9 Anxiety disorder, ANXIETY DISORDER, Diagnosis 06/25/2019 [facility] unspecified UNSPECIFIED 06:16:00 PM [facility] Surgeries/Procedures Procedure Description Date Indications Data Source(s) Psychotherapy (30 Mins) 02/10/2020 NEXT [facility] ([facility] W/ E&M 12:00:00 AM EDT [facility] - 02/10/2020 [place]) 12:00:00 AM EDT OFFICE/OUTPATIENT VISIT, 02/10/2020 NEX TGEN ([facility] EST 12:00:00 AM EDT [facility] - 02/10/2020 [place]) 12:00:00 AM EDT Psychotherapy (30 Mins) 01/09/2020 NEXT GEN ([facility] W/ E&M 12:00:00 AM EDT [facility] 01/09/2020 [place]) 12:00:00 AM EDT OFFICE/OUTPATIENT VISIT, 01/09/2020 NEX TGEN ([facility] EST 12:00:00 AM EDT [facility] 01/09/2020 [place]) 12:00:00 AM EDT Psychotherapy (30 Mins) 12/12/2019 NEXT GEN ([facility] W/ E&M 12:00:00 AM EDT [facility] 12/12/2019 [place]) 12:00:00 AM EDT OFFICE/OUTPATIENT VISIT, 12/12/2019 NEX TGEN ([facility] EST 12:00:00 AM EDT [facility] 12/12/2019 [place]) 12:00:00 AM EDT Psychotherapy (30 Mins) 11/14/2019 NEXT GEN ([facility] W/ E&M 12:00:00 AM EDT [facility] 11/14/2019 [place]) 12:00:00 AM EDT OFFICE/OUTPATIENT VISIT, 11/14/2019 NEX TGEN ([facility] EST 12:00:00 AM EDT [facility] 11/14/2019 [place]) 12:00:00 AM EDT OFFICE/OUTPATIENT VISIT, 09/13/2019 NEX TGEN ([facility] EST 12:00:00 AM EST [facility] - 09/13/2019 Center) 12:00:00 AM EST OFFICE/OUTPATIENT VISIT, 05/06/2019 NEX TGEN ([facility] EST 12:00:00 AM EDT [facility] - 05/06/2019 [facility]) 12:00:00 AM EDT Social History Code Duration Value Status Description Data Source(s ) Smoking 06/25/2019 Denies Ever completed Denies Ever Smoked [facility] [place] 08:59:00 PM EST [facility] C enter Smoking 06/25/2019 Denies Ever completed Denies Ever Smoked [facility] [place] 07:18:00 PM EST [facility] C enter Smoking 06/25/2019 Denies Ever completed Denies Ever Smoked [facility] [place] 06:44:00 PM EST Smoked Medical C enter Vital Signs ID Date Data Source UNK Name Value Range Interpretation Code Description Data Source(s) Body temperature [id number] [id number] [facility] Respiratory rate 18 /min 18 /min [facility] Oxygen saturation 98 % 98 % [facility] in [facility] blood [facility] by Pulse oximetry Heart rate 62 /min 62 /min [facility] Diastolic blood 77 mm[Hg] 77 mm[Hg] [facility] Systolic blood 146 mm[Hg] 146 mm[Hg] [facility] Patient Treatment Plan of Care Planned Activity Planned Date Details Description Data Source (s) aripiprazole 5 MG Oral 02/10/2020 12:00:00 NEXTGEN ([facility] Tablet [Abilify] AM [facility]) Sertraline 50 MG Oral 02/10/2020 12:00:00 NEXTGEN ([facility] [Zoloft] AM [facility]) aripiprazole 5 MG Oral 01/09/2020 12:00:00 NEXTGEN ([facility] Tablet [Abilify] AM [facility]) Sertraline 50 MG Oral 01/09/2020 12:00:00 NEXTGEN ([facility] Tablet [Zoloft] AM [facility]) Sertraline 50 MG Oral 12/12/2019 12:00:00 NEXTGEN ([facility] [Zoloft] AM [facility]) aripiprazole 5 MG Oral 12/12/2019 12:00:00 NEXTGEN ([facility] Tablet [Abilify] AM [facility]) aripiprazole 5 MG Oral 11/14/2019 12:00:00 NEXTGEN ([facility] [Abilify] AM [facility]) Sertraline 50 MG Oral 11/14/2019 12:00:00 NEXTGEN ([facility] Table[facility] [Zoloft] AM [facility]) aripiprazole 5 MG Oral 09/13/2019 12:00:00 NEXTGEN ([facility] Tablet [Abilify] AM [facility]) Sertraline 50 MG Oral 09/13/2019 12:00:00 NEXTGEN ([facility] Tablet [Zoloft] AM [facility]) Hydroxyzine Hydrochloride 07/18/2019 12:00:00 NEXTGEN ([facility] 25 MG Oral Tablet AM [facility]) aripiprazole 5 MG Oral 07/18/2019 12:00:00 NEXTGEN ([facility] Tablet [Abilify] AM [facility]) Sertraline 50 MG Oral 07/18/2019 12:00:00 NEXTGEN ([facility] Tablet [Zoloft] AM [facility]) Sertraline 50 MG Oral 05/06/2019 12:00:00 NEXTGEN ([facility] [Zoloft] AM [facility]) aripiprazole 5 MG Oral 05/06/2019 12:00:00 NEXTGEN ([facility] [Abilify] AM [facility]) aripiprazole 5 MG Oral 02/26/2019 12:00:00 NEXTGEN ([facility] [Abilify] AM [facility]) Sertraline 50 MG Oral 02/26/2019 12:00:00 NEXTGEN ([facility] [Zoloft] AM [facility])
== END 2020-05-21 06:05 | disposition home or self-care (01) ==
LOC: JER 04:08
DX: J06.9 Acute upper respiratory infection, unspecified (principal)
CPT/HCPCS: 99282-25; C9803; U0003

== ENCOUNTER 2020-10-05 00:26 | Inpatient (IN) | payer MEDICARE, OTHER ==
[2020-10-05] MEDS ORDERED: SODIUM CHLORIDE 0.9% 500 ML INFUS.BAG IV ONE (01:19)
[2020-10-05 01:53] LABS: BASO % 0.2 % (0-2.0); EOS % 0.3 % (0-4.5); HEMATOCRIT 32.5 % (32.4-45.2); LYMPH % 28.4 % (8-40); MCH 21.5 pg (25.7-33.7); MCHC 30.8 g/dl (32.0-36.0); MEAN CELL VOLUME 69.9 fl (80-96); MEAN PLT VOLUME 9.4 fl (7.5-11.1); NEUT % 65.1 % (42.8-82.8); PLATELET COUNT 198 K/MM3 (134-434); RBC 4.65 M/mm3 (3.60-5.2); RDW 15.5 % (11.6-15.6); WHITE BLOOD COUNT 8.2 K/mm3 (4.0-10.0)
[2020-10-05 02:08] LABS: INR 1.09 (0.83-1.09); PROTHROMBIN TIME (PATIENT) 13.2 SEC (9.7-13.0)
[2020-10-05 02:10] LABS: ACTIVATED PTT 30.4 SECONDS (25.2-36.5); CHLORIDE 107 mmol/L (98-107); POTASSIUM 4.5 mmol/L (3.5-5.1); SODIUM 140 mmol/L (136-145)
[2020-10-05 02:13] LABS: ANION GAP 6 MMOL/L (8-16); BLOOD UREA NITROGEN 10.1 mg/dL (7-18); CALCIUM 8.3 mg/dL (8.5-10.1); CO2 26 mmol/L (21-32)
[2020-10-05 02:14] LABS: ALBUMIN 3.3 g/dl (3.4-5.0); GLUCOSE,RANDOM 99 mg/dL (74-106)
[2020-10-05 02:17] LABS: CREATININE 0.8 mg/dL (0.55-1.3); PHOSPHOROUS 2.4 mg/dL (2.5-4.9); SGOT/AST 32 U/L (15-37); SGPT/ALT 30 U/L (13-61)
[2020-10-05 02:18] LABS: BILIRUBIN,TOTAL 0.4 mg/dL (0.2-1); TOT PROT 7.4 g/dl (6.4-8.2)
[2020-10-05 02:19] LABS: ALK PHOS 104 U/L (45-117)
[2020-10-05 02:23] LABS: N-TERMINAL BNP 73.7 pg/ml (5-125)
[2020-10-05] MEDS ORDERED: ACETAMINOPHEN 500 MG TABLET (FP) PO ONE (02:57)
[2020-10-05] MEDS ORDERED: ACETAMINOPHEN 325 MG TABLET (FP) ONE (03:04)
[2020-10-05] MEDS ORDERED: DEXAMETHASONE LIQUID 0.5 MG/5 ML PO ONE (03:09)
[2020-10-05] MEDS ORDERED: ALBUTEROL SO4 2.5/IPRATROPIUM 0.5 INH SOL 3 ML VIAL.NEB. NEB ONE ×2 (03:10→03:11)
[2020-10-05] MEDS ORDERED: DEXAMETHASONE SOD PHOSPHATE 10 MG/1 ML VIAL ONE (03:12)
[2020-10-05 03:33] LABS: ANISOCYTOSIS 2+; MACROCYTOSIS 0; OVALOCYTE 1+; PLATELET ESTIMATE NORMAL; TARGET CELLS 1+; TEAR DROP CELLS 1+
[2020-10-05] MEDS ORDERED: FUROSEMIDE 40 MG/4 ML INJECTABLE VIAL IVPUSH ONE (04:14)
[2020-10-05] MEDS ORDERED: NAPH,MB-DB/K PH,MBDB POWDER PACKET PO ONE (04:21)
[2020-10-05] MEDS ORDERED: ACETAMINOPHEN 325 MG TABLET (FP) PO PRN (04:37)
[2020-10-05] MEDS ORDERED: NAPH,MB-DB/K PH,MBDB POWDER PACKET ONE (04:40)
[2020-10-05] MEDS ORDERED: FUROSEMIDE 40 MG/4 ML INJECTABLE VIAL ONE (04:40)
[2020-10-05] MEDS ORDERED: ENOXAPARIN NA (PORCINE) 40 MG/0.4 ML DISP.SYRIN SQ SCH (10:00)
[2020-10-05 10:25] LABS: BASO % 0.2 % (0-2.0); HEMATOCRIT 33.6 % (32.4-45.2); HEMOGLOBIN 10.7 GM/dL (10.7-15.3); LYMPH % 12.2 % (8-40); MCH 21.9 pg (25.7-33.7); MCHC 31.8 g/dl (32.0-36.0); MEAN CELL VOLUME 68.8 fl (80-96); MONO % 1.1 % (3.8-10.2); NEUT % 86.5 % (42.8-82.8); PLATELET COUNT 225 K/MM3 (134-434); RBC 4.88 M/mm3 (3.60-5.2); RDW 15.5 % (11.6-15.6); RETICULOCYTES 1.98 % (0.5-1.5); WHITE BLOOD COUNT 7.5 K/mm3 (4.0-10.0)
[2020-10-05] MEDS ORDERED: ENOXAPARIN NA (PORCINE) 40 MG/0.4 ML DISP.SYRIN SQ ONE (10:34)
[2020-10-05] MEDS: ENOXAPARIN NA (PORCINE) 40 MG/0.4 ML DISP.SYRIN SQ SCH ×2 (10:38→21:28)
[2020-10-05 10:50] LABS: POTASSIUM 3.9 mmol/L (3.5-5.1)
[2020-10-05 10:51] LABS: CALCIUM 8.6 mg/dL (8.5-10.1)
[2020-10-05 10:52] LABS: ALBUMIN 3.7 g/dl (3.4-5.0); BLOOD UREA NITROGEN 12.4 mg/dL (7-18); MAGNESIUM 2.1 mg/dL (1.8-2.4)
[2020-10-05 10:55] LABS: CREATININE 0.9 mg/dL (0.55-1.3); PHOSPHOROUS 2.4 mg/dL (2.5-4.9)
[2020-10-05 10:57] LABS: BILIRUBIN,TOTAL 0.3 mg/dL (0.2-1); TOT PROT 8.4 g/dl (6.4-8.2)
[2020-10-05] MEDS ORDERED: ALBUTEROL SO4 HFA INHALER IH ONE (12:49)
[2020-10-05] MEDS: ALBUTEROL SO4 HFA INHALER IH SCH ×3 (13:07→21:27)
[2020-10-05 17:23] VITALS: BMI 58.5
[2020-10-05] MEDS: BUDESONIDE/FORMETEROL FUMARATE 160/4.5 mcg INHALER IH SCH ×3 (17:33→21:28)
[2020-10-05] MEDS ORDERED: MELATONIN 5 MG TABLETS PO ONE (20:36)
[2020-10-05] MEDS ORDERED: SERTRALINE HCL 50 MG TABLET (FP) PO SCH (22:00)
[2020-10-05] MEDS ORDERED: ARIPiprazole 5 MG TABLET PO SCH (22:00)
[2020-10-06] MEDS ORDERED: MAG HYDROX/AL HYDROX/SIMETH 30 ML UNIT-DOSE CUP PO PRN (01:50)
[2020-10-06] MEDS ORDERED: BENZOCAINE/MENTH/CETYLPYRD CL 1 EACH LOZENGE MM PRN ×2 (05:47→15:45)
[2020-10-06] MEDS ORDERED: guaiFENesin 200 MG/10 ML 10 ML UNIT-DOSE CUPS PO PRN ×2 (05:47→15:45)
[2020-10-06] MEDS: BUDESONIDE/FORMETEROL FUMARATE 160/4.5 mcg INHALER IH SCH (10:21)
[2020-10-06] MEDS: ENOXAPARIN NA (PORCINE) 40 MG/0.4 ML DISP.SYRIN SQ SCH (10:21)
[2020-10-06] MEDS: ALBUTEROL SO4 HFA INHALER IH SCH ×3 (10:21→17:22)
[2020-10-06] MEDS ORDERED: DOCUSATE SODIUM 100 MG CAPSULE (FP) PO SCH (14:15)
[2020-10-06] MEDS ORDERED: FAMOTIDINE 10 MG TABLET PO SCH (14:15)
[2020-10-06 14:24] VITALS: BP 152/80; PULSE 77; TEMP 98.7
[2020-10-06] MEDS ORDERED: NAPH,MB-DB/K PH,MBDB POWDER PACKET PO ONE (15:00)
[2020-10-06] MEDS ORDERED: SENNOSIDES 8.6MG TABLET (FP) PO SCH (22:00)
== END 2020-10-06 21:00 | disposition home or self-care (01) | DRG 177 ==
LOC: JER 00:26 → JERBED 03:00 → J7W 14:51
PROVIDERS: ADMIT Internal Medicine; ATTEND Internal Medicine
DX: U07.1 COVID-19 (principal); J12.82 Pneumonia due to coronavirus disease 2019; J96.01 Acute respiratory failure with hypoxia; Z68.43 Body mass index [BMI] 50.0-59.9, adult; F32.9 Major depressive disorder, single episode, unspecified; F41.9 Anxiety disorder, unspecified; E66.01 Morbid (severe) obesity due to excess calories; D50.9 Iron deficiency anemia, unspecified; I87.2 Venous insufficiency (chronic) (peripheral); E03.9 Hypothyroidism, unspecified
CPT/HCPCS: 36415; 71045-TC-FY; 71275-TC; 80053; 82550; 82728; 83540; 83550; 83605; 83615; 83735; 83880; 84100; 84439; 84443; 84484; 84703; 85025; 85045; 85379; 85610; 85730; 86140; 86769; 87040; 87804; 93005; 93010; 93306-TC; 99285-25; C9803; U0003

== ENCOUNTER 2021-02-19 13:04 | Inpatient (IN) | payer MEDICARE, OTHER ==
[2021-02-19] MEDS ORDERED: FUROSEMIDE 40 MG/4 ML INJECTABLE VIAL IVPUSH ONE (13:51)
[2021-02-19] MEDS ORDERED: FUROSEMIDE 40 MG/4 ML INJECTABLE VIAL ONE ×2 (14:03→19:20)
[2021-02-19 14:56] LABS: BASO % 0.4 % (0-2.0); EOS % 0.7 % (0-4.5); HEMATOCRIT 31.6 % (32.4-45.2); HEMOGLOBIN 9.5 GM/dL (10.7-15.3); MCH 20.8 pg (25.7-33.7); MCHC 30.1 g/dl (32.0-36.0); MEAN CELL VOLUME 69.2 fl (80-96); MEAN PLT VOLUME 9.3 fl (7.5-11.1); MONO % 4.2 % (3.8-10.2); NEUT % 68.7 % (42.8-82.8); PLATELET COUNT 270 10^3/uL (134-434); RBC 4.57 M/mm3 (3.60-5.2); RDW 16.6 % (11.6-15.6); WHITE BLOOD COUNT 13.4 K/mm3 (4.0-10.0)
[2021-02-19 15:09] LABS: INR 1.13 (0.83-1.09); PROTHROMBIN TIME (PATIENT) 13.8 SEC (9.7-13.0)
[2021-02-19 15:27] LABS: ALBUMIN 3.3 g/dl (3.4-5.0); CALCIUM 8.9 mg/dL (8.5-10.1)
[2021-02-19 15:28] LABS: BLOOD UREA NITROGEN 11.9 mg/dL (7-18)
[2021-02-19 15:31] LABS: CREATININE 0.8 mg/dL (0.55-1.3)
[2021-02-19 15:32] LABS: BILIRUBIN,TOTAL 0.3 mg/dL (0.2-1); TOT PROT 7.2 g/dl (6.4-8.2)
[2021-02-19 15:35] LABS: N-TERMINAL BNP 185.3 pg/ml (5-125)
[2021-02-19] MEDS ORDERED: ACETAMINOPHEN 325 MG TABLET (FP) PO PRN (17:15)
[2021-02-19] MEDS ORDERED: FUROSEMIDE 40 MG/4 ML INJECTABLE VIAL IVPUSH SCH (19:15)
[2021-02-19] MEDS ORDERED: ALBUTEROL SO4 HFA INHALER IH PRN (19:18)
[2021-02-19 20:19] LABS: EPI CELLS 21 /uL (0-25.1); HYALINE CASTS 0 /uL (0-3.1); PH,URINE 5.5 (5.0-8.0); URINE APPEARANCE CLEAR; URINE BACTERIA 68 /uL (0-1359); URINE BILIRUBIN NEGATIVE (NEGATIVE); URINE COLOR YELLOW; URINE GLUCOSE (UA) NEGATIVE (NEGATIVE); URINE KETONE NEGATIVE (NEGATIVE); URINE LEUK ESTERASE TRACE (NEGATIVE); URINE NITRITE NEGATIVE (NEGATIVE); URINE PROTEIN NEGATIVE (NEGATIVE); URINE RBC 12 /uL (0-23.9); URINE WBC 48 /uL (0-25.8)
[2021-02-19 20:31] LABS: RETICULOCYTES 3.53 % (0.5-1.5)
[2021-02-19] MEDS ORDERED: PT OWN MED DRAWER 7, Y5N ONE (22:03)
[2021-02-19] MEDS: SERTRALINE HCL 50 MG TABLET (FP) PO SCH ×2 (22:13→22:26)
[2021-02-19] MEDS: ENOXAPARIN NA (PORCINE) 40 MG/0.4 ML DISP.SYRIN SQ SCH (22:13)
[2021-02-19] MEDS: ARIPiprazole 5 MG TABLET PO SCH (22:25)
[2021-02-19] MEDS: BUDESONIDE/FORMETEROL FUMARATE 160/4.5 mcg INHALER IH SCH (22:26)
[2021-02-20 00:37] VITALS: BMI 63.1
[2021-02-20 08:17] LABS: BASO % 0.9 % (0-2.0); EOS % 1.1 % (0-4.5); HEMATOCRIT 30.7 % (32.4-45.2); HEMOGLOBIN 9.3 GM/dL (10.7-15.3); LYMPH % 29.3 % (8-40); MCH 21.1 pg (25.7-33.7); MCHC 30.3 g/dl (32.0-36.0); MEAN CELL VOLUME 69.4 fl (80-96); MEAN PLT VOLUME 9.9 fl (7.5-11.1); MONO % 4.5 % (3.8-10.2); NEUT % 64.2 % (42.8-82.8); PLATELET COUNT 176 10^3/uL (134-434); RBC 4.43 M/mm3 (3.60-5.2); RDW 16.3 % (11.6-15.6); WHITE BLOOD COUNT 10.5 K/mm3 (4.0-10.0)
[2021-02-20 08:35] LABS: CHLORIDE 104 mmol/L (98-107); SODIUM 139 mmol/L (136-145)
[2021-02-20 08:53] LABS: BILIRUBIN,TOTAL 0.4 mg/dL (0.2-1); CALCIUM 8.5 mg/dL (8.5-10.1); TOT PROT 6.9 g/dl (6.4-8.2)
[2021-02-20 08:54] LABS: ALBUMIN 3.2 g/dl (3.4-5.0); ALK PHOS 91 U/L (45-117); ANION GAP 10 MMOL/L (8-16); BLOOD UREA NITROGEN 13.4 mg/dL (7-18); CHOLESTEROL 191 mg/dL (50-200); CO2 25 mmol/L (21-32); CREATININE 0.9 mg/dL (0.55-1.3); GLUCOSE,RANDOM 97 mg/dL (74-106); HDL CHOLESTEROL 37 mg/dL (40-60)
[2021-02-20 08:55] LABS: PHOSPHOROUS 4.2 mg/dL (2.5-4.9); TRIGLYCERIDES 115 mg/dL (0-150)
[2021-02-20 08:56] LABS: LDL CHOLESTEROL (ONLY SJRH) 120 mg/dL (5-100)
[2021-02-20 08:57] LABS: SGOT/AST 17 U/L (15-37); SGPT/ALT 25 U/L (13-61)
[2021-02-20] MEDS: FUROSEMIDE 40 MG/4 ML INJECTABLE VIAL IVPUSH SCH (10:12)
[2021-02-20] MEDS: BUDESONIDE/FORMETEROL FUMARATE 160/4.5 mcg INHALER IH SCH ×3 (10:13→21:24)
[2021-02-20] MEDS: ENOXAPARIN NA (PORCINE) 40 MG/0.4 ML DISP.SYRIN SQ SCH ×2 (10:13→21:23)
[2021-02-20] MEDS ORDERED: PT OWN MED DRAWER 7, Y5N ONE (21:07)
[2021-02-20] MEDS: SERTRALINE HCL 50 MG TABLET (FP) PO SCH (21:23)
[2021-02-20] MEDS: ARIPiprazole 5 MG TABLET PO SCH (21:23)
[2021-02-21] MEDS ORDERED: FAMOTIDINE 10 MG TABLET PO ONE (00:07)
[2021-02-21 08:05] LABS: BASO % 0.3 % (0-2.0); EOS % 1.4 % (0-4.5); HEMATOCRIT 30.3 % (32.4-45.2); HEMOGLOBIN 9.2 GM/dL (10.7-15.3); LYMPH % 27.5 % (8-40); MCH 20.8 pg (25.7-33.7); MCHC 30.2 g/dl (32.0-36.0); MEAN CELL VOLUME 68.9 fl (80-96); MEAN PLT VOLUME 9.2 fl (7.5-11.1); NEUT % 65.8 % (42.8-82.8); PLATELET COUNT 262 10^3/uL (134-434); RBC 4.39 M/mm3 (3.60-5.2); RDW 16.7 % (11.6-15.6); WHITE BLOOD COUNT 10.5 K/mm3 (4.0-10.0)
[2021-02-21 08:20] LABS: ALBUMIN 3.3 g/dl (3.4-5.0); BLOOD UREA NITROGEN 14.1 mg/dL (7-18); CALCIUM 8.3 mg/dL (8.5-10.1)
[2021-02-21 08:24] LABS: CREATININE 0.9 mg/dL (0.55-1.3)
[2021-02-21 08:25] LABS: BILIRUBIN,TOTAL 0.5 mg/dL (0.2-1)
[2021-02-21] MEDS: ENOXAPARIN NA (PORCINE) 40 MG/0.4 ML DISP.SYRIN SQ SCH (10:05)
[2021-02-21] MEDS: BUDESONIDE/FORMETEROL FUMARATE 160/4.5 mcg INHALER IH SCH (10:05)
[2021-02-21] MEDS: FUROSEMIDE 40 MG/4 ML INJECTABLE VIAL IVPUSH SCH (10:05)
[2021-02-21 11:16] VITALS: PULSE 78
[2021-02-21] MEDS ORDERED: ONDANSETRON 4 MG/2 ML VIAL IVPUSH PRN (14:36)
[2021-02-21 14:42] VITALS: BP 138/84; TEMP 98.5
== END 2021-02-21 17:44 | disposition home or self-care (01) | DRG 641 ==
LOC: JER 13:04 → MERGE 16:01 → JERBED 16:01 → J4W 21:34
PROVIDERS: ATTEND Student in an Organized Health Care Education/Training Program
DX: E66.01 Morbid (severe) obesity due to excess calories (principal); D64.9 Anemia, unspecified; I25.10 Atherosclerotic heart disease of native coronary artery without angina pectoris; F31.9 Bipolar disorder, unspecified; G43.909 Migraine, unspecified, not intractable, without status migrainosus; E78.5 Hyperlipidemia, unspecified; N92.0 Excessive and frequent menstruation with regular cycle; G47.33 Obstructive sleep apnea (adult) (pediatric); I87.2 Venous insufficiency (chronic) (peripheral); Z86.16 Personal history of COVID-19; I10 Essential (primary) hypertension; Z68.44 Body mass index [BMI] 60.0-69.9, adult
CPT/HCPCS: 36415; 71045-TC-FY; 71250-TC; 80053; 80061; 81003; 82550; 82728; 83010; 83036; 83540; 83550; 83721; 83735; 83880; 84100; 84484; 85025; 85045; 85610; 85730; 93005; 93010; 93970-TC; 99285-25; C9803; U0003; U0005

== ENCOUNTER 2023-09-13 20:29 | Emergency (ER) | payer MEDICARE, OTHER ==
[2023-09-13 20:36] VITALS: RESP 18; TEMP 98.6; BMI 44.4
[2023-09-13 23:34] LABS: BASO % 0.5 % (0-2.0); EOS % 0.8 % (0-4.5); HEMATOCRIT 31.8 % (32.4-45.2); HEMOGLOBIN 10.1 GM/dL (10.7-15.3); MCH 23.5 pg (25.7-33.7); MCHC 31.7 g/dl (32.0-36.0); MONO % 4.8 % (3.8-10.2); NEUT % 57.9 % (42.8-82.8); PLATELET COUNT 205 10^3/uL (134-434); RDW 14.3 % (11.6-15.6); WHITE BLOOD COUNT 9.6 K/mm3 (4.0-10.0)
[2023-09-13 23:41] LABS: INR 1.11 (0.83-1.09); PROTHROMBIN TIME (PATIENT) 12.9 SEC (9.7-13.0)
[2023-09-13 23:44] LABS: ACTIVATED PTT 32.2 SECONDS (25.2-36.5)
[2023-09-13 23:53] LABS: POTASSIUM 4.5 mmol/L (3.5-5.1)
[2023-09-13 23:55] LABS: ALBUMIN 3.2 g/dl (3.4-5.0); BLOOD UREA NITROGEN 15.6 mg/dL (7-18); CALCIUM 8.3 mg/dL (8.5-10.1)
[2023-09-13 23:58] LABS: CREATININE 0.8 mg/dL (0.55-1.3)
[2023-09-14] LABS: BILIRUBIN,TOTAL 0.3 mg/dL (0.2-1); TOT PROT 6.7 g/dl (6.4-8.2)
[2023-09-14 00:45] VITALS: BP 119/68; PULSE 53
== END 2023-09-14 01:16 | disposition home or self-care (01) ==
LOC: JER 20:29
DX: R23.2 Flushing (principal); R35.1 Nocturia; R42 Dizziness and giddiness; Z20.822 Contact with and (suspected) exposure to COVID-19
CPT/HCPCS: 0241U-QW; 36415; 71046-TC-FY; 80053; 84484; 85025; 85610; 85730; 86850; 86900; 86901; 93005; 93010; 99285-25

== ENCOUNTER 2024-01-19 08:55 | Emergency (ER) | payer OTHER ==
[2024-01-19 09:34] VITALS: BP 126/72; PULSE 56; RESP 18; TEMP 98; BMI 44.9
[2024-01-19] MEDS ORDERED: ACETAMINOPHEN INJECTION 100 ML IVPB ONE (09:46)
[2024-01-19] MEDS: SODIUM CHLORIDE 0.9% 500 ML INFUS.BAG IV ONE (10:11)
[2024-01-19] MEDS: ACETAMINOPHEN 1000 MG/100 ML BAG IVPB ONE (10:11)
[2024-01-19 10:24] LABS: BASO % 0.4 % (0-2.0); EOS % 0.6 % (0-4.5); HEMATOCRIT 32.6 % (32.4-45.2); HEMOGLOBIN 10.3 GM/dL (10.7-15.3); LYMPH % 24.2 % (8-40); MCH 22.3 pg (25.7-33.7); MCHC 31.5 g/dl (32.0-36.0); MEAN CELL VOLUME 70.7 fl (80-96); MEAN PLT VOLUME 9.3 fl (7.5-11.1); MONO % 5.8 % (3.8-10.2); PLATELET COUNT 223 10^3/uL (134-434); RBC 4.61 M/mm3 (3.60-5.2); RDW 15.9 % (11.6-15.6)
[2024-01-19 10:29] LABS: INR 1.16 (0.83-1.09); PROTHROMBIN TIME (PATIENT) 13.1 SEC (9.7-13.0)
[2024-01-19 10:32] LABS: ACTIVATED PTT 32.8 SECONDS (25.2-36.5)
[2024-01-19 10:42] LABS: POTASSIUM 5.7 mmol/L (3.5-5.1)
[2024-01-19 10:44] LABS: CALCIUM 8.7 mg/dL (8.5-10.1)
[2024-01-19 10:45] LABS: ALBUMIN 3.3 g/dl (3.4-5.0); BLOOD UREA NITROGEN 7.8 mg/dL (7-18); MAGNESIUM 2.3 mg/dL (1.8-2.4)
[2024-01-19 10:48] LABS: CREATININE 0.7 mg/dL (0.55-1.3)
[2024-01-19 10:49] LABS: BILIRUBIN,TOTAL 0.5 mg/dL (0.2-1)
[2024-01-19] MEDS ORDERED: METOCLOPRAMIDE HCL INJECTION 10 MG/2 ML VIAL ONE (11:38)
[2024-01-19] MEDS ORDERED: LIDOCAINE VISCOUS 2% ORAL/TOP 15 ML UNIT-DOSE CUP ONE (11:38)
[2024-01-19] MEDS: METOCLOPRAMIDE HCL INJECTION 10 MG/2 ML VIAL IVPB ONE (11:45)
[2024-01-19] MEDS: LIDOCAINE VISCOUS 2% ORAL/TOP 15 ML UNIT-DOSE CUP MM ONE (11:45)
[2024-01-19 12:34] LABS: POTASSIUM 4.5 mmol/L (3.5-5.1)
[2024-01-19 12:36] LABS: BLOOD UREA NITROGEN 6.7 mg/dL (7-18); CALCIUM 8.3 mg/dL (8.5-10.1)
[2024-01-19 12:40] LABS: CREATININE 0.7 mg/dL (0.55-1.3)
== END 2024-01-19 13:02 | disposition home or self-care (01) ==
LOC: JER 08:55
PROC: 3E033NZ Introduction of Analgesics, Hypnotics, Sedatives into Peripheral Vein, Percutaneous Approach (ICD-10-PCS; principal; 2024-01-19)
PROC: 3E033GC Introduction of Other Therapeutic Substance into Peripheral Vein, Percutaneous Approach (ICD-10-PCS; 2024-01-19)
DX: J06.9 Acute upper respiratory infection, unspecified (principal); R53.1 Weakness; R09.81 Nasal congestion; R42 Dizziness and giddiness; R07.9 Chest pain, unspecified; R11.2 Nausea with vomiting, unspecified; R51.9 Headache, unspecified; J02.9 Acute pharyngitis, unspecified; B34.9 Viral infection, unspecified; Z20.822 Contact with and (suspected) exposure to COVID-19
CPT/HCPCS: 0241U-QW; 36415; 71046-TC-FY; 80048; 80053; 83735; 84484; 84703; 85025; 85610; 85730; 86850; 86900; 86901; 93005; 93010; 96374; 96375; 99285-25; J0131

== ENCOUNTER 2024-04-18 10:24 | Day surgery (SDC) | payer OTHER ==
[2024-04-18] MEDS ORDERED: diphenhydrAMINE HCL 50 MG CAPSULE PO PRN (10:38)
[2024-04-18] MEDS ORDERED: HYDROCORTISONE SOD SUCCINATE 100 MG/2 ML VIAL IVPB PRN (10:39)
[2024-04-18] MEDS: IRON SUCROSE INJECTION 200 MG in SODIUM CHLORIDE 100 ML IVPB ONE (10:46)
[2024-04-18 12:06] VITALS: BP 131/76; PULSE 64; RESP 18; TEMP 98.9
== END 2024-04-18 12:10 | disposition home or self-care (01) ==
LOC: FINFUSION 10:24 → FM/S 10:24 → FINFUSION 12:10
PROVIDERS: ATTEND Internal Medicine
PROC: 3E033GC Introduction of Other Therapeutic Substance into Peripheral Vein, Percutaneous Approach (ICD-10-PCS; principal; 2024-04-18)
DX: D50.9 Iron deficiency anemia, unspecified (principal)
CPT/HCPCS: 96365; J1756

== ENCOUNTER 2025-01-07 08:40 | Emergency (ER) | payer OTHER ==
[2025-01-07 09:01] VITALS: RESP 18; TEMP 97.7; BMI 45.1
[2025-01-07] MEDS ORDERED: METOCLOPRAMIDE HCL INJECTION 10 MG/2 ML VIAL ONE (09:13)
[2025-01-07] MEDS ORDERED: ACETAMINOPHEN INJECTION 100 ML ONE (09:13)
[2025-01-07] MEDS: ACETAMINOPHEN 1000 MG/100 ML BAG IVPB ONE (09:20)
[2025-01-07] MEDS: METOCLOPRAMIDE HCL INJECTION 10 MG/2 ML VIAL IVPB ONE (09:45)
[2025-01-07 09:50] LABS: HEMOGLOBIN 9.7 g/dL (11.2-15.7); MCHC 30.3 g/dl (32.2-35.5); MEAN CELL VOLUME 71.7 fl (79.4-94.8); PLATELET COUNT 253 x10^3/uL (182-369); RDW 13.2 % (12.2-17.1)
[2025-01-07] MEDS: SODIUM CHLORIDE 0.9% 500 ML INFUS.BAG IV ONE (09:50)
[2025-01-07 10:46] LABS: ALBUMIN 3.4 g/dl (3.4-5.0); BLOOD UREA NITROGEN 10.2 mg/dL (7-18); CALCIUM 9.3 mg/dL (8.5-10.1)
[2025-01-07 10:49] LABS: CREATININE 0.6 mg/dL (0.55-1.3)
[2025-01-07 10:51] LABS: BILIRUBIN,TOTAL 0.4 mg/dL (0.2-1); TOT PROT 6.6 g/dl (6.4-8.2)
[2025-01-07 12:13] VITALS: BP 132/72; PULSE 63
== END 2025-01-07 12:15 | disposition home or self-care (01) ==
LOC: JER 08:40
PROC: 3E033NZ Introduction of Analgesics, Hypnotics, Sedatives into Peripheral Vein, Percutaneous Approach (ICD-10-PCS; principal; 2025-01-07)
PROC: 3E033GC Introduction of Other Therapeutic Substance into Peripheral Vein, Percutaneous Approach (ICD-10-PCS; 2025-01-07)
DX: R11.0 Nausea (principal); R42 Dizziness and giddiness; R51.9 Headache, unspecified; R53.1 Weakness; R10.13 Epigastric pain; R21 Rash and other nonspecific skin eruption; L53.9 Erythematous condition, unspecified
CPT/HCPCS: 36415; 80053; 83605; 83690; 85027; 86850; 86900; 86901; 93005; 93010; 99284-25

== ENCOUNTER 2025-03-04 15:23 | Emergency (ER) | payer OTHER ==
[2025-03-04 15:30] VITALS: RESP 18; BMI 43.5
[2025-03-04 17:34] LABS: ABSOLUTE IMMATURE GRANULOCYTES 0.02 x10^3/uL (0.0-0.031); BASOPHILS # 0.01 x10^3/uL (0.01-0.08); EOSINOPHIL % 0.8 % (0.7-5.8); EOSINOPHILS # 0.05 x10^3/uL (0.04-0.36); MCHC 30.1 g/dl (32.2-35.5); MEAN CELL VOLUME 74.2 fl (79.4-94.8); MONOCYTE # 0.35 x10^3/uL (0.24-0.86); MONOCYTE % 5.7 % (4.7-12.5); RDW 15.0 % (12.2-17.1)
[2025-03-04 17:54] LABS: CO2 26.0 mmol/L (21-32); GLUCOSE,RANDOM 89.0 mg/dL (74-106)
[2025-03-04 17:57] LABS: CREATININE 0.6 mg/dL (0.55-1.3); SGOT/AST 26.0 U/L (15-37); SGPT/ALT 23.0 U/L (13-61)
[2025-03-04 17:59] LABS: TOT PROT 6.2 g/dl (6.4-8.2)
[2025-03-04 18:00] LABS: ALK PHOS 118.0 U/L (45-117)
[2025-03-04] MEDS: LACTATED RINGERS SOLUTION 1000 ML INFUS.BAG IV ONE (18:20)
[2025-03-04] MEDS ORDERED: ACETAMINOPHEN 500 MG TABLET (FP) ONE (18:41)
[2025-03-04] MEDS: ACETAMINOPHEN 500 MG TABLET (FP) PO ONE (18:46)
[2025-03-04 19:36] VITALS: BP 120/69; PULSE 53; TEMP 99
== END 2025-03-04 21:25 | disposition home or self-care (01) ==
LOC: JER 15:23
DX: E86.0 Dehydration (principal); R11.2 Nausea with vomiting, unspecified; R53.1 Weakness; R42 Dizziness and giddiness
CPT/HCPCS: 36415; 71045-TC-FY; 80053; 83690; 83735; 84100; 84484; 84703; 85025; 86850; 86900; 86901; 93005; 93010; 99285-25

== ENCOUNTER 2025-04-05 11:25 | Day surgery (SDC) | payer OTHER ==
[2025-04-05] MEDS: IRON SUCROSE INJECTION 200 MG in SODIUM CHLORIDE 100 ML IVPB ONE (12:17)
[2025-04-05 13:58] VITALS: BP 95/65; PULSE 60; RESP 18; TEMP 98.4
== END 2025-04-05 15:52 | disposition home or self-care (01) ==
LOC: FINFUSION 11:25 → FM/S 11:26 → FINFUSION 15:52
PROVIDERS: ATTEND Internal Medicine
PROC: 3E033GC Introduction of Other Therapeutic Substance into Peripheral Vein, Percutaneous Approach (ICD-10-PCS; principal; 2025-04-05)
DX: D50.9 Iron deficiency anemia, unspecified (principal)
CPT/HCPCS: 96365; J1756